=== PATIENT | male | born 1965 | race Caucasian/White ===

== ENCOUNTER 2019-04-19 09:45 | Observation (INO) ==
[2019-04-19] MEDS ORDERED: ASPIRIN PO ONE (09:55)
[2019-04-19 10:19] LABS: BASO# 0.03 X1000 (0.0-0.2); BASO% 0.4 % (0.0-0.8); EOS# 0.14 X1000 (0.0-0.7); HEMOGLOBIN 13.5 g/dL (14.0-18.0); IMM GRAN# 0.02 X1000 (0.0-0.04); IMM GRAN% 0.3 % (0.0-0.5); LYMPH# 0.98 X1000 (1.2-3.4); LYMPH% 14.2 % (20.5-51.1); MCH 28.8 PG (27-31); MCHC 31.4 g/dL (33-37); MCV 91.9 FL (81-99); MONO# 1.09 X1000 (0.11-0.59); MONO% 15.8 % (1.7-9.3); MPV 12.2 FL (7.4-10.4); NEUT# 4.64 X1000 (1.4-6.5); NEUT% 67.3 % (42.2-75.2); PLT 133 X1000 (130-400); RBC 4.68 XMIL (4.7-6.1); RDW 16.8 % (11.5-14.5)
[2019-04-19 10:32] LABS: INR 3.78
[2019-04-19 10:33] LABS: PTT 58.3 Seconds (22.3-41.8)
[2019-04-19 10:50] LABS: ALBUMIN 3.8 g/dL (3.5-5.0); CALCIUM 9.1 mg/dL (8.8-10.2); CREATININE 3.6 mg/dL (0.7-1.2); POTASSIUM 4.9 mmol/L (3.5-5.1); TOTAL PROTEIN 6.4 g/dL (6.3-8.3)
[2019-04-19] MEDS ORDERED: LASIX IV ONE (12:02)
--- NOTE | 2019-04-19 14:07 | Diag Imaging Result Doc PS360 ---
EXAM: CHEST-2 VIEWS INDICATION: sob chf TECHNIQUE: 2 views COMPARISON: 02/07/2015 FINDINGS: There is stable very mild increased interstitial markings bilaterally that probably represents mild fibrosis. The lungs are grossly clear, otherwise. There is no discrete pleural fluid collection or pneumothorax. There is stable mild cardiomegaly and stable prosthetic heart valve. Central vasculature is unremarkable. IMPRESSION: Mild chronic appearing interstitial thickening that is stable. Electronically signed by Emeka Ervin 04/19/2019 2:05 PM
[2019-04-19] MEDS ORDERED: SALINE LOCK IV FLUID XX ONE (14:29)
[2019-04-19] MEDS ORDERED: APRESOLINE IV ONE (14:42)
--- NOTE | 2019-04-19 16:46 | HISTORY AND PHYSICAL ---
PRIMARY CARE PROVIDER: Dr. Gavino Kyle. The patient sees a kidney and skilled nursing case manager with the [facility] group. HISTORY OF PRESENT ILLNESS: This is a 53-year-old male that was admitted to the ER today with complaints of increasing shortness of breath after a sinus infection that lasted approximately a week. The patient states he has a history of kidney transplant 17 years ago and history of congestive heart failure. The patient also has had a double artificial heart valve replacements and a pancreatic transplant. The patient currently has bilateral lower extremity fluid retention and complains of cough and sinus drainage. The patient also states that earlier today he had some pain that started in his shoulder blades and radiated forward where he complains that it was causing chest pain that radiated from the back into the front lasting approximately 30 to 40 minutes. The pain was dull with no associated diaphoresis, nausea or vomiting and no complaint of discomfort on exertion. The patient tried to relieve the discomfort with position changes. The pain approximately started around 8 a.m. and was as high as a 6 out of 10 but is currently a 3 out of 10 with slight ache to shoulders only. PAST MEDICAL HISTORY: 1. Coronary artery disease. 2. Aortic disease. 3. Heart valve replacement. 4. Peripheral vascular disease. 5. Left kidney transplant. 6. Pancreatic transplant. PAST SURGICAL HISTORY: 1. Coronary artery bypass grafting in 2005. 2. Right femoral-popliteal surgery in 2011 and the femoral-popliteal artery subsequently occluded 6 weeks post surgery. 3. Mitral valve replacement. 4. Renal and pancreatic transplant. FAMILY HISTORY: Father positive for CAD. SOCIAL HISTORY: Patient denies smoking, the use of alcohol or illicit drugs and currently lives with his . ALLERGIES: Ciprofloxacin. MEDICATIONS: The patient's medications will need to be updated and reconciled. REVIEW OF SYSTEMS: General: Patient denies fever or chills, flu-like symptoms. HEENT: Patient states he has sinus congestion along with some sinus drainage. Denies vision changes, dizziness, or neck pain. Endocrine: Denies excessive thirst, urination, or intolerance to heat and cold. Cardiovascular: Patient has no palpitations. The patient complains of chest pain that was radiating from shoulders to left chest with no exertion of pain, no radiation to jaw or arms. No complaints of nausea, vomiting, or diaphoresis. Extremity: Lower extremity edema noted. +1. Respiratory: Lung sounds have minimal wheezing to bases. No sputum noted. The patient does state that he has had some increased shortness of breath. The patient denies hemoptysis. GI: Patient denies nausea, vomiting, diarrhea, or constipation at this time. : Patient denies any frequency, urgency or burning. Musculoskeletal: Patient denies muscle or joint pain, weakness or muscle aches. Neuro: Patient denies dizziness, tremors, numbness. Hematological: Patient denies bruising. Psych: Denies history of mental illness or depression. Skin: The patient has a multiple purplish areas to arms and legs. LABORATORY/DIAGNOSTICS: The patient's WBCs are 6.90, hematocrit is 13.5 and 43 with platelets being 133. Patient's PT is 39 with an INR of 3.7, PTT is 58.3. Sodium is 140, potassium 4.9, chloride 102, BUN is 66 with a creatinine of 3.6, glucose is 112, AST is 40, with ALT of 18. Troponin it is 0.66 and 0.65. ProBNP is 12,645. The patient's chest x-ray shows mild chronic appearing interstitial thickening that is stable. PHYSICAL EXAM: VITAL SIGNS: Temp 97.5 degrees, heart rate 71, respirations 18, 166/100, 98% on room air. GENERAL: This is a 53-year-old male that does not appear to have shortness of breath at rest. HEENT: Normocephalic. PERRLA. Mucous membranes are moist. NECK: No lymphadenopathy noted. Trachea is midline. No JVD noted at this time. CV: Artificial valve click noted. No gallops or rubs. Rate and rhythm is regular. slight edema to b/l lower extremities RESPIRATORY: Slight wheezing to posterior bases bilaterally. Nonlabored respirations at rest. No accessory muscle use. GI: Soft and nontender. Bowel sounds x4 quadrants. Abdomen is soft and palpable x4 quadrants. NEURO: Cranial nerves 2 through 12 are grossly intact. MUSCULOSKELETAL: 5/5 on all 4 extremities. SKIN: Warm and dry with subsequently venous stasis noted to bilateral lower extremities. ASSESSMENT: 1. Chest pain. 2. Mild chronic congestive heart failure with probable exacerbation. 3. Acute on chronic kidney injury. 4. Left kidney transplant. 5. Pancreatic transplant. 6. Aortic valve replacement on Coumadin. PLAN: 1. Plan will admit to [facility]. Obtain daily weights. Will obtain pedal pulses per Doppler q.shift. Placed on O2 therapy if oxygen saturation is less than 94%. Will use saline lock. 2. Update confirm home medications and reconcile when that is complete. 3. We will use of oxygen as needed and place on telemetry. 4. The patient will be started on a heart healthy diet. 5. Obtain an echo cardiogram. Will obtain a CBC, CMP, magnesium, and proBNP. CK and PTT trending INR and serial troponins. 6. The patient was given aspirin 325 mg and Lasix 40 mg IV dose now and Apresoline 10 mg IV x1 dose. 7. Further recommendations will be pending per patient's clinical course and response to therapy. Dictated by SAVANNA Lauren for Yusuf Cedeno MD cc: Yusuf Cedeno MD MTDD
--- NOTE | 2019-04-19 16:49 | EKG Report ---
Test Performed on : 04/19/2019 12:29:29 PM Test Reason : repeat Blood Pressure : / mmHG Vent. Rate : 065 BPM Atrial Rate : 065 BPM P-R Int : 186 ms QRS Dur : 136 ms QT Int : 450 ms P-R-T Axes : 055 -53 143 degrees QTc Int : 468 ms Normal sinus rhythm. Left axis deviation Left bundle branch block Abnormal ECG When compared with ECG of 19-APR-2019 10:01, (Unconfirmed) No significant change was found Unconfirmed Result
--- NOTE | 2019-04-19 16:50 | EKG Report ---
Test Performed on : 04/19/2019 10:01:42 AM Test Reason : sob chest pressure chf Blood Pressure : / mmHG Vent. Rate : 070 BPM Atrial Rate : 070 BPM P-R Int : 184 ms QRS Dur : 136 ms QT Int : 428 ms P-R-T Axes : 045 -56 144 degrees QTc Int : 462 ms Normal sinus rhythm. Left axis deviation Nonspecific intraventricular block T wave abnormality, consider lateral ischemia Abnormal ECG When compared with ECG of 04-OCT-2013 06:33, premature ventricular complexes. are no longer present QRS duration has increased T wave inversion more evident in Lateral leads Unconfirmed Result
[2019-04-19] MEDS ORDERED: NS 1,000 ML IV SCH (18:15)
[2019-04-19] MEDS ORDERED: PATIENT'S OWN MED PO SCH ×8 (18:15→21:00)
[2019-04-19 18:25] LABS: BASO# 0.02 X1000 (0.0-0.2); BASO% 0.3 % (0.0-0.8); EOS# 0.15 X1000 (0.0-0.7); EOS% 2.3 % (0.0-10.0); HEMATOCRIT 42.3 % (42.0-52.0); HEMOGLOBIN 13.6 g/dL (14.0-18.0); IMM GRAN# 0.01 X1000 (0.0-0.04); IMM GRAN% 0.2 % (0.0-0.5); LYMPH% 12.2 % (20.5-51.1); MCH 29.6 PG (27-31); MCHC 32.2 g/dL (33-37); MONO# 0.93 X1000 (0.11-0.59); MONO% 14.1 % (1.7-9.3); MPV 11.9 FL (7.4-10.4); NEUT# 4.67 X1000 (1.4-6.5); NEUT% 70.9 % (42.2-75.2); PLT 134 X1000 (130-400); RDW 16.7 % (11.5-14.5); WBC 6.58 X1000 (4.8-10.8)
[2019-04-19] MEDS ORDERED: NS 500 ML IV SCH (19:00)
--- NOTE | 2019-04-19 19:54 | HISTORY AND PHYSICAL ---
ADDENDUM: Patient seen and examined by myself. Full note dictated and discussed with nurse practitioner. Patient presented to the hospital noting that he is having increased shortness of breath. He has lower extremity edema, but notes that he always has this. It may be slightly worse. His creatinine is actually a little bit worse at 3.6 than his normal at 2.6. Does have a history of I believe aortic and mitral valve replacement. History of renal and pancreas transplant. I am going to admit him to the hospital and follow his symptoms. I believe he may be a little intravascularly depleted. I am going to give him some fluids and follow. cc: Yusuf Cedeno MD
[2019-04-19] MEDS ORDERED: MIRAPEX PO SCH (21:00)
[2019-04-19] MEDS ORDERED: METOPROLOL TARTRATE 50 MG PO SCH (21:00)
[2019-04-19] MEDS ORDERED: PRAVACHOL PO SCH (21:00)
[2019-04-19] MEDS ORDERED: XANAX PO SCH (21:00)
[2019-04-19] MEDS ORDERED: CELLCEPT PO SCH (21:00)
[2019-04-19] MEDS ORDERED: KEFLEX PO SCH (21:00)
[2019-04-19] MEDS ORDERED: TOPROL XL PO SCH (21:00)
[2019-04-19] MEDS: PROGRAF PO SCH (21:30)
[2019-04-19] MEDS: SODIUM BICARBONATE PO SCH (21:30)
[2019-04-19] MEDS: PATIENT'S OWN MED OPH SCH (21:31)
[2019-04-20 03:17] LABS: INR 3.07; PROTIME 33.1 Seconds (11.0-16.0)
[2019-04-20 04:15] LABS: ALBUMIN 3.2 g/dL (3.5-5.0); CALCIUM 8.5 mg/dL (8.8-10.2); CREATININE 3.3 mg/dL (0.7-1.2); MAGNESIUM 2.2 mg/dL (1.5-2.7); POTASSIUM 4.7 mmol/L (3.5-5.1); TOTAL PROTEIN 5.8 g/dL (6.3-8.3)
[2019-04-20] MEDS ORDERED: PRILOSEC PO SCH (07:00)
[2019-04-20] MEDS ORDERED: NS 1,000 ML IV SCH (08:30)
[2019-04-20] MEDS ORDERED: TOPROL XL PO SCH (09:00)
[2019-04-20] MEDS ORDERED: PREDNISONE PO SCH (09:00)
[2019-04-20] MEDS ORDERED: THERA M PLUS PO SCH (09:00)
[2019-04-20] MEDS ORDERED: PATIENT'S OWN MED PO SCH ×7 (09:00→21:00)
[2019-04-20] MEDS ORDERED: LASIX PO SCH (09:00)
[2019-04-20] MEDS ORDERED: ASPIRIN PO SCH (09:00)
[2019-04-20] MEDS ORDERED: VASOTEC PO SCH (09:00)
[2019-04-20] MEDS: PROGRAF PO SCH (09:59)
[2019-04-20] MEDS: SODIUM BICARBONATE PO SCH (10:00)
[2019-04-20] MEDS: PATIENT'S OWN MED OPH SCH (10:03)
[2019-04-20 12:19] VITALS: BP 144/92
[2019-04-20] MEDS ORDERED: COUMADIN PO SCH (21:00)
--- NOTE | 2019-04-21 07:36 | ECHO REPORT ---
ORDER DATE: 04/19/2019 INTERPRETING PHYSICIAN: Dr. Parsons CLINICAL INDICATIONS: Patient with mitral and aortic valve replacement, prior coronary bypass. M-MODE MEASUREMENTS: Left ventricle end diastole: 5.3 cm. Left ventricle end systole: 4.7 cm. Posterior wall: 1.0 cm. Interventricular septum: 1.1 cm. Left atrium: 5.2 cm. Aortic root: 3.5 cm. SUMMARY OF 2-DIMENSIONAL IMAGING: The left ventricular function appears to be significantly impaired, estimated at 30-35%. There is wall motion abnormality involving the intraventricular septum and inferior wall. This study is really very difficult. The tricuspid valve shows moderately severe to severe degree of regurgitation. The pulmonary pressure is estimated at 100 mmHg. The mitral valve is mechanical. It shows an elevated E/A ratio, the ratio is 3.2. The maximum gradient across the valve is 9 mm, mean gradient is 2 mm. That is normal. The aortic valve is a mechanical prosthesis. The maximum gradient across the aortic valve is 16 mm and the mean gradient is 7 mm. The pulmonic valve appears to be grossly unremarkable. There is some mild to moderate degree of pulmonic regurgitation. There is no pericardial effusion. Both atria appear to be enlarged. The left atrium appears to be significantly enlarged. The right atrium is moderately enlarged. The left ventricle is mildly to moderately enlarged. SUMMARY: This study shows 1. Enlarged left ventricle with significantly impaired systolic function with ejection fraction of 30-35% with significant impairment of the inferior wall at the inferior ventricular septum. 2. Moderately severe to severe degree of tricuspid regurgitation with the pulmonary systolic pressure that is very close to 100 mmHg. 3. Mild to moderate degree of pulmonic regurgitation. 4. Normal function in mechanical aortic valve. 5. Normally functioning mechanical mitral valve. Enlarged atria. Clinical correction recommended. cc: Jin Parsons MD
--- NOTE | 2019-04-21 12:38 | DISCHARGE SUMMARY ---
ADMISSION DATE: 04/19/2019 DISCHARGE DATE: 04/20/2019 PRIMARY CARE PHYSICIAN: Dr. Gavino Kyle. ADMISSION DIAGNOSES: 1. Chest pain. 2. Mild chronic congestive heart failure with probable exacerbation. 3. Acute on chronic kidney injury. 4. Left kidney transplant. 5. Pancreatic transplant. 6. Aortic valve replacement, on Coumadin. DISCHARGE DIAGNOSES: 1. Chest pain, resolved. 2. Mild chronic congestive heart failure, with probable exacerbation, improved. 3. Acute on chronic kidney injury, improved. 4. Left kidney transplant. 5. Pancreatic transplant. 6. Aortic valve replacement, on Coumadin. SUMMARY OF FINDINGS: This is a 53-year-old male, who presented to the emergency room with increased shortness of breath after having a sinus infection last week. He states he has had bilateral lower extremity fluid retention and some pain that started in his shoulders from his back into the front, lasting approximately 30 to 40 minutes, that was dull, with no associated diaphoresis, nausea, vomiting, or complaints of discomfort on exertion. He was admitted. His cardiac enzymes x4 were negative. His proBNP was elevated at 10,848, but that is actually the lowest that he has had this year. He was placed on telemetry, healthy heart diet. Continued his home medications. His kidney function was a creatinine of 3.6, which is a little above his normal that is usually below 3, so we gave him a 500 mL bag of normal saline at 100 mL an hour to gently hydrate. The patient states he is feeling much better. His creatinine this morning was down to 3.3, so it is felt that now he can safely be discharged home. DISCHARGE MEDICATIONS: He will continue all of his home medications of timolol 0.5% ophthalmic solution 1 drop b.i.d., Xanax 0.5 mg p.o. at bedtime, aspirin 81 mg p.o. daily, Keflex 250 mg p.o. at bedtime, enalapril 2.5 mg p.o. daily, Nexium 20 mg p.o. daily, Lasix 20 mg p.o. at bedtime 40 mg p.o. q.a.m., metoprolol 75 mg p.o. b.i.d. and 50 mg p.o. at bedtime, a multivitamin p.o. daily, CellCept 500 mg p.o. b.i.d. as directed, Mirapex 0.125 mg p.o. at bedtime, pravastatin 80 mg p.o. at bedtime, prednisone 5 mg p.o. daily, sodium bicarbonate 650 mg p.o. b.i.d., spironolactone 12.5 mg p.o. daily, tacrolimus 1 mg p.o. q.12 hours, and Coumadin 6 mg p.o. at bedtime as directed and 4 mg p.o. as directed. FOLLOWUP: He will need to follow up with his primary care physician in the next 1 to 2 weeks and call their office for an appointment. All discharge instructions have been reviewed with the patient and he verbalizes understanding. TIME SPENT: 35 minutes. Dictated by SAVANNA Alba for Yusuf Cedeno MD cc: SAVANNA Alba MD Roger H. Moss Jr, MD
--- NOTE | 2019-04-21 13:10 | DISCHARGE SUMMARY ---
ADMISSION DATE: 04/19/2019 DISCHARGE DATE: 04/20/2019 ADDENDUM: Patient seen and examined by myself. Full note dictated and discussed with nurse practitioner. On discharge, patient is awake, alert, and notes that his symptoms have improved. He is no longer short of breath. His creatinine is not back to his baseline. It down to 3.3, still feel as though he is mildly dehydrated. We will give him a 500 mL bolus, he got 100 an hour, after which we will discharge him home. Follow up outpatient with primary care. No changes made on his chronic medications, diet or activity. cc: Yusuf Cedeno MD
== END 2019-04-20 16:55 | disposition home or self-care (01) ==
LOC: P.MEDSURG 09:45 → P.ED 09:45 → P.MEDSURG 13:16
PROVIDERS: ATTEND Family Medicine
CPT/HCPCS: 71020; 71046; 80053; 82550; 83735; 83880; 84484; 85025; 85610; 85730; 93005; 93306; A9270; J0360; J1940; J7030; J7506; J7512; J7517

== ENCOUNTER 2019-07-29 15:49 | Inpatient (IN) ==
[2019-07-29] MEDS ORDERED: TYLENOL PO ONE (16:16)
--- NOTE | 2019-07-29 16:18 | PROVIDER DOCUMENTATION ---
HPI-General Adult - General Chief Complaint: Cough Stated Complaint: COUGH Time Seen by Provider: 07/29/19 16:16 Source: patient Allergies/Adverse Reactions: Patient Allergies Allergy/AdvReac Type Severity Reaction Status Date / Time ciprofloxacin [From Cipro] Allergy Unknown Verified 07/29/19 16:50 NSAIDS (Non-Steroidal Allergy Unknown Verified 07/29/19 16:50 Anti-Inflamma Home Medications: Home Medication List Medication Instructions Recorded Confirmed Last Taken Type Esomeprazole [Nexium] 20 mg PO DAILY 10/03/13 07/29/19 07/29/19 History Prednisone 10 mg PO DAILY 10/03/13 07/29/19 07/29/19 History Tacrolimus 1 mg PO Q12HR 10/03/13 07/29/19 07/29/19 History Timolol 0.5% Oph Solution 1 drop OPH BID 10/03/13 07/29/19 07/28/19 History [Timoptic 0.5% Oph Solution] Alprazolam [Xanax] 0.5 mg PO QHS 02/10/15 07/29/19 07/28/19 History Aspirin 81 mg PO DAILY 11/09/18 07/29/19 07/29/19 History Multivit-Min/Iron Fum/Folic AC 1 ea PO DAILY 04/19/19 07/29/19 07/29/19 History [Bbeeu-Ovydmpb-Najujrpo Tablet] Azathioprine [Imuran] 100 mg PO DAILY 07/13/19 07/29/19 07/29/19 History Ropinirole [Requip] 0.5 mg PO QHS 07/13/19 07/29/19 07/28/19 History Metoprolol Succinate E.r. [Toprol 50 mg PO QHS 07/14/19 07/29/19 07/28/19 History Xl] Warfarin [Coumadin] 5 mg PO WSUPPER 07/15/19 07/29/19 07/28/19 History - History of Present Illness -Gen Adult Nature of Presenting Problems: Pt. is 53 yom that presents with c/o SOB and fever from dialysis. He did not finish his dialysis today and reports he doesn't feel well. Location of Pain/Injury: reports: generalized. denies: none, head, face, mouth, neck, chest, upper extremity, hand(s), abdomen, back, pelvis, genitalia, lower extremity, feet, upper body, lower body, other Pain Radiation: reports: no radiation. denies: arm(s), back, buttocks, chest, epigastric, feet, groin, jaw, flank (L), legs (lower), LLQ, LUQ, neck, periumbilical, flank (R), RLQ, RUQ, shoulder(s), scapula, scrotal, sternal notch, suprapubic, legs (upper), urethral, vaginal, other Quality of Pain: reports: aching. denies: burning, indigestion, pressure, throbbing, tightness Severity: reports: mild. denies: moderate, severe Onset/Duration: reports: unsure, gradual Timing: reports: still present. denies: improving, intermittent, getting worse Context/Activities at Onset: reports: none. denies: light activity, moderate activity, vigorous activity, recent emotional stress, recent physical stress, recent trauma history, possible bad food, cold exposure, eating, out of country travel, rest, sleep, sexual activity, other Modifying Factors: improves with: nothing Associated Symptoms: reports: cough, fever/chills, shortness of breath. denies: denies symptoms, anxiety, arm pain, back/neck pain, chest pain, constipation, diaphoresis, diarrhea, dizziness, EENT symptoms, fatigue, genitourinary problems, headaches, heartburn, joint pain, loss of appetite, malaise, muscle aches, sinus congestion/drainage, nausea, rash, seizure, sensory/motor loss, pain with inspiration, swelling/mass in abdomen, syncope, vomiting, weakness, trouble walking, other Similar Symptoms Previously?: Yes Recently seen or treated by another doctor?: No Review of Systems - Adult - REVIEW OF SYSTEMS - ADULT Constitutional: reports: no symptoms reported Eyes: reports: no symptoms reported Ears, Nose, Mouth & Throat: reports: no symptoms reported Cardiovascular: reports: no symptoms reported Respiratory: reports: see HPI, cough, dyspnea on exertion, shortness of breath. denies: pleurisy, wheezing Gastrointestinal: reports: no symptoms reported Genitourinary: reports: no symptoms reported Musculoskeletal: reports: no symptoms reported Integumentary: reports: no symptoms reported Neurological: reports: no symptoms reported Psychiatric: reports: no symptoms reported Past History - Adult - PAST MEDICAL HISTORY-ADULT Review of Records: reports: Old Records Reviewed, Nursing Assessment Review, Medications Reviewed, Social history reviewed & non-contributory. Major Childhood Illnesses: reports: denies history Cardiovascular: reports: cardiac disease, aortic disease, CHF, HTN, heart valve problem, SD, PVD Respiratory: reports: denies history Gastrointestinal: reports: other (pancreas transplant) Obstetrical/Gynecological: reports: denies history Genitourinary: reports: dialysis, kidney disease (left kidney transplant) Musculoskeletal: reports: denies history Neurological: reports: denies history Endocrine/Immune: reports: Diabetes Other Conditions: reports: denies history - PRIOR SURGERIES/PROCEDURES Surgical/Procedure History: reports: CABG, cholecystectomy, other (Fem-pop; a ortic and mitral valve replacement; renal/pancreatic transplant) - IMMUNIZATION STATUS Childhood Immunizations: See Nurse Assessment Flu Vaccine: See Nurse Assessment - FAMILY HISTORY Family History: reviewed, not pertinent - SOCIAL HISTORY Smoking: denies Physical Exam-General - PHYSICAL EXAM-ADULT Initial Vital Signs Reviewed: Yes - CONSTITUTIONAL General Appearance: alert, moderate distress, lethargic. negative: anxious, obtunded, combative - EYES Eyes: PERRL/EOMI, pink conjunctivae - HEAD, EARS, NOSE, MOUTH & THROAT HENMT: normocephalic/atraumatic, moist mucous membranes - NECK Neck: non-tender, full range of motion, supple, normal inspection - RESPIRATORY Respiratory: crackles. negative: rhonchi, stridor, wheezing - CARDIOVASCULAR Cardiovascular: regular rate, rhythm, tachycardia. negative: friction rub, irregularly irregular - GASTROINTESTINAL (ABDOMEN) Abdominal Exam: normal bowel sounds, non tender - LYMPHATIC Lymphatic: no adenopathy - MUSCULOSKELETAL Back Exam: normal inspection, no CVA tenderness, no vertebral tenderness Extremity: normal range of motion, normal inspection. negative: inflammation, swelling, tenderness Peripheral Pulses: radial (R): 2+, radial (L): 2+ - SKIN Integumentary: pallor. negative: cyanosis, erythema, rash, swelling - NEUROLOGIC Neurologic: grossly normal, no motor/sensory deficits - PSYCHIATRIC Psych/Mental Status: normal mood/affect, normal thought content, normal thought process, oriented x 3. negative: anxious, paranoid, tearful Progress - PLAN OF CARE/RESULTS Progress/Plan/Lab Results: Vital Signs - 8 hr 07/29/19 16:07 Temperature 99.9 F H Pulse Rate 94 H Respiratory Rate 20 Blood Pressure 113/71 O2 Sat by Pulse Oximetry 96 Orders Category Date Time Status Saline Loc NOW Care 07/29/19 16:16 Active CHEST-2 VIEWS [RAD] Stat Exams 07/29/19 16:10 Ordered BLOOD CULTURE [BLDCUL] Stat Lab 07/29/19 16:17 Uncollected CBC WITH ELECTRONIC DIFF [HEME] Stat Lab 07/29/19 16:16 Uncollected COMPREHENSIVE METABOLIC PANEL [CHEM] Stat Lab 07/29/19 16:16 Uncollected LACTATE, PLASMA [CHEM] Stat Lab 07/29/19 16:17 Uncollected Acetaminophen [Tylenol] Med 07/29/19 16:16 Discontinued 1,000 mg PO NOW ONE Laboratory Tests 07/29/19 07/29/19 07/29/19 16:30 16:30 16:30 WBC 9.38 RBC 3.44 L Hgb 11.2 L Hct 35.7 L MCV 103.8 H MCH 32.6 H MCHC 31.4 L RDW Std Deviation 20.0 H Plt Count 166 MPV 10.3 Immature Gran % (Auto) 0.3 Neut % (Auto) 81.9 H Lymph % (Auto) 4.1 L Rosebud % (Auto) 11.1 H Eos % (Auto) 2.3 Baso % (Auto) 0.3 Immature Gran # (Auto) 0.03 Neut # (Auto) 7.68 H Lymph # (Auto) 0.38 L Rosebud # (Auto) 1.04 H Eos # (Auto) 0.22 Baso # (Auto) 0.03 Sodium 134 L Potassium 4.1 Chloride 95 L Carbon Dioxide 22 L Anion Gap 17 BUN 35 H Creatinine 4.8 H Estimated GFR/1.73 m2 13 BUN/Creatinine Ratio 7 Glucose 126 H Calculated Osmolality 278 Calcium 8.8 Total Bilirubin 2.09 H AST 32 ALT 10 Alkaline Phosphatase 272 H Mft-H-Zmsqtdktfjz Pept Total Protein 7.7 Albumin 3.4 L Globulin 4.3 Albumin/Globulin Ratio 0.8 Plasma Lactate 2.1 07/29/19 16:30 WBC RBC Hgb Hct MCV MCH MCHC RDW Std Deviation Plt Count MPV Immature Gran % (Auto) Neut % (Auto) Lymph % (Auto) Rosebud % (Auto) Eos % (Auto) Baso % (Auto) Immature Gran # (Auto) Neut # (Auto) Lymph # (Auto) Rosebud # (Auto) Eos # (Auto) Baso # (Auto) Sodium Potassium Chloride Carbon Dioxide Anion Gap BUN Creatinine Estimated GFR/1.73 m2 BUN/Creatinine Ratio Glucose Calculated Osmolality Calcium Total Bilirubin AST ALT Alkaline Phosphatase Wvm-V-Trzsuzhluxi Pept > 98110 H Total Protein Albumin Globulin Albumin/Globulin Ratio Plasma Lactate Discussed results and plan of care with patient. Patient agrees with plan and verbalizes understanding. Result Diagrams: 07/29/19 16:30 07/29/19 16:30 - XRAY 1 XRAY Study: Chest ([facility] - [address] , [address], [place] [address] [facility] - [address] [place] [address] Department of Imaging Patient: JANEY DUPREE Date: 07/29/19MR#: [id number] : 1965ADM Status: PRE ERAcct#: [id number] Age/Sex: 53/MRoom/Bed: Loc: ED Ordering Physician: Zander Weinstein MD Family Physician: Gavino Kyle Jr, MD Reason for Procedure: cough Signed EXAM: CHEST-2 VIEWS HISTORY: cough TECHNIQUE: Two views COMPARISON: 07/13/2019 FINDINGS: The lungs are well expanded. The heart is mildly enlarged. Mild increased interstitial markings. No consolidation. A heart valve has been replaced. No change in the right-sided catheter. No pneumothorax. No pleural effusions. IMPRESSION: Bilateral infiltrates versus pulmonary edema. Electronically signed by Casey Mix 07/29/2019 4:25 PM 07/29/19 7747 Interpreting Physician: Casey Mix MD Dictated Date/Time: 07/29/19 8099 cc: Zander Weinstein MD; Gavino Kyle Jr, MD) XRAY Interpretation: See note - CONSULTS/PCP/HOSPITALIST Notification #1 *Consult/PCP/Hospitalist*: Dr. Wesley Time Discussed: 17:35 Reason/Comments: Consult Consult Disposition: Admit (Give vanc and admit, blood cultures) #2 Consult: Dr. Blackburn Time Discussed: 17:42 Reason/Comments: Admission Consult Disposition: Admit Departure - Departure Date of Disposition Decision: 07/29/19 Time of Disposition Decision: 17:42 DIAGNOSIS: Shortness of breath CHF (congestive heart failure) Qualifiers: Heart failure type: unspecified Heart failure chronicity: unspecified Qualified Code(s): I50.9 - Heart failure, unspecified Renal failure Qualifiers: Renal failure chronicity: chronic Chronic kidney disease stage: unspecified stage Qualified Code(s): N18.9 - Chronic kidney disease, unspecified Fever Qualifiers: Fever type: unspecified Qualified Code(s): R50.9 - Fever, unspecified Disposition: HOME 01 Certified Medical Emergency: Emergent Condition: Stable Referrals and Follow-Ups: Gavino Kyle Jr, MD [Primary Care Provider] - - Critical Care Note This patient required my direct & personal management of CC.: No Attestation - Physician/ BETHEL Attestation Patient care was provided by Advanced Practice Provider:: Yes Advanced Practice Provider:: Allan Blackburn Advanced Practice Provider documentation review:: The Mid-level provider documentation, treatment plan and medical decision making was reviewed by the physician who agrees with all treatment and medical decision making by the P. The physician spent face to face time with patient:: No Advanced Practice Provider documentation review:: Supervising physician onsite and consulted in the evaluation and care of this patient. The physician did not have a face to face encounter with the patient.
--- NOTE | 2019-07-29 16:27 | Diag Imaging Result Doc PS360 ---
EXAM: CHEST-2 VIEWS HISTORY: cough TECHNIQUE: Two views COMPARISON: 07/13/2019 FINDINGS: The lungs are well expanded. The heart is mildly enlarged. Mild increased interstitial markings. No consolidation. A heart valve has been replaced. No change in the right-sided catheter. No pneumothorax. No pleural effusions. IMPRESSION: Bilateral infiltrates versus pulmonary edema. Electronically signed by Casey Mix 07/29/2019 4:25 PM
[2019-07-29] MEDS ORDERED: ROCEPHIN 1 GM in NS 50 ML IV ONE (16:38)
[2019-07-29 16:53] LABS: BASO# 0.03 X1000 (0.0-0.2); BASO% 0.3 % (0.0-0.8); EOS# 0.22 X1000 (0.0-0.7); EOS% 2.3 % (0.0-10.0); HEMATOCRIT 35.7 % (42.0-52.0); HEMOGLOBIN 11.2 g/dL (14.0-18.0); IMM GRAN# 0.03 X1000 (0.0-0.04); IMM GRAN% 0.3 % (0.0-0.5); LYMPH# 0.38 X1000 (1.2-3.4); LYMPH% 4.1 % (20.5-51.1); MCH 32.6 PG (27-31); MCHC 31.4 g/dL (33-37); MCV 103.8 FL (81-99); MONO# 1.04 X1000 (0.11-0.59); MONO% 11.1 % (1.7-9.3); MPV 10.3 FL (7.4-10.4); NEUT# 7.68 X1000 (1.4-6.5); NEUT% 81.9 % (42.2-75.2); PLT 166 X1000 (130-400); RBC 3.44 XMIL (4.7-6.1); WBC 9.38 X1000 (4.8-10.8)
[2019-07-29 17:10] LABS: ALB/GLOB RATIO 0.8; ALBUMIN 3.4 g/dL (3.5-5.0); CALCIUM 8.8 mg/dL (8.8-10.2); CREATININE 4.8 mg/dL (0.7-1.2); POTASSIUM 4.1 mmol/L (3.5-5.1); TOTAL BILIRUBIN 2.09 mg/dL (0.20-1.00); TOTAL PROTEIN 7.7 g/dL (6.3-8.3)
[2019-07-29] MEDS ORDERED: VANCOMYCIN 1 GM/NS 1 GM/250 ML IVPB IV ONE (17:42)
[2019-07-29] MEDS ORDERED: LASIX IV ONE (17:44)
[2019-07-29] MEDS ORDERED: SOLU-MEDROL IV ONE (21:13)
[2019-07-29] MEDS ORDERED: XANAX PO SCH (21:15)
[2019-07-29] MEDS ORDERED: REQUIP PO SCH (21:15)
[2019-07-29] MEDS: PROGRAF PO SCH (21:39)
--- NOTE | 2019-07-29 21:50 | HISTORY AND PHYSICAL ---
CHIEF COMPLAINT: Shortness of breath, pulmonary edema, end-stage renal disease. HISTORY: This is the first recent [facility] admission for this 53-year-old white man, admitted after O2 saturation dropped in the 80s while on dialysis. Dialysis was discontinued and he was sent to the emergency room. The emergency room physician called, stating that he had hypoxia, but there had been improvement by the time he was in the emergency room. Last O2 saturation on room air was 92%. Chest x-ray revealed bilateral infiltrates suggestive of pulmonary edema. ProBNP was greater than 35,000. Alkaline phosphatase was elevated at 272. Total bilirubin was 2.09. BUN was 35 and creatinine 4.8. Plasma lactate was 2.1. White blood count was 9400 with 82% neutrophils. Hematocrit was 35.7. PAST MEDICAL HISTORY: 1. On dialysis for 7 weeks. 2. He has a Vas-Cath in his right chest. PRESENT MEDICATIONS: 1. Xanax 0.5 mg nightly. 2. Requip 0.5 mg nightly. 3. Metoprolol 50 mg nightly. 4. Prograf 1 mg q.12 hours. 5. Aspirin 81 mg daily. 6. Imuran 100 mg daily. 7. Nexium 20 mg daily. 8. Prednisone 10 mg daily. 9. Timolol eyedrops 0.5% 1 drop in each eye b.i.d. 10. Warfarin 5 mg daily with supper. 11. Pravastatin 20 mg nightly. ALLERGIES: Cipro and nonsteroidal anti-inflammatory drugs. REVIEW OF SYSTEMS: Significant for hypertension and end-stage renal disease. SOCIAL HISTORY: Previous smoker. and lives with his . Denies significant alcohol usage. PHYSICAL EXAMINATION: VITAL SIGNS: Temperature 97.8 degrees, heart rate 85, respirations 16, blood pressure 115/63, O2 saturation 96% on room air. GENERAL: He was given 40 mg Lasix IV in the ER. He complains with pain in his left elbow and right hand. HEENT: Pupils equal, round, and reactive to light. Pharynx benign with no erythema or exudate. NECK: Supple with no mass or lymphadenopathy. HEART: Regular in rate and rhythm with no murmur, rub, or gallop. EXTREMITIES: There is swelling and erythema of the left olecranon bursa, elbow. He also has some erythema on the dorsal aspect of the right 5th proximal phalanx. No cyanosis, clubbing, or edema. There is some bruising on both arms, especially on the dorsal aspect of the forearms. ABDOMEN: Soft with no mass or organomegaly. RECTAL AND GENITALIA: Deferred. NEUROLOGICAL: No focal weakness. IMPRESSION: 1. Pulmonary edema. 2. Left olecranon bursitis. 3. Cellulitis of the right 5th finger. 4. End-stage renal disease. 5. Hypercholesterolemia. 6. Hypertension. PLAN: Admit for further evaluation and treatment. Dr. Leon is consulted. Blood cultures were done from 2 sites. There is possibility of pneumonia, and not just pulmonary edema. cc: MD Gavino Vinson Jr, MD
[2019-07-30] MEDS ORDERED: TIGHT: 0.2 ML/HR FOR DIALYSIS MISC PRN (06:18)
[2019-07-30] MEDS ORDERED: HEPARIN IV PRN (06:18)
[2019-07-30] MEDS ORDERED: NS 2,000 ML MISC PRN (06:18)
[2019-07-30 07:14] LABS: INR 1.82; PROTIME 21.5 Seconds (11.0-16.0)
[2019-07-30] MEDS ORDERED: IMURAN PO SCH (09:00)
[2019-07-30] MEDS ORDERED: NEXIUM PO SCH (09:00)
[2019-07-30] MEDS ORDERED: ASPIRIN PO SCH (09:00)
[2019-07-30] MEDS ORDERED: PREDNISONE PO SCH (09:00)
[2019-07-30] MEDS ORDERED: TIMOPTIC 0.5% OPH SOLUTION OPH SCH (09:00)
--- NOTE | 2019-07-30 09:19 | Diag Imaging Result Doc PS360 ---
CHEST-2 VIEWS - 07/30/2019 INDICATION: infiltrates COMPARISON: 07/29/2019 FINDINGS: Stable right-sided dialysis catheter. Stable sternotomy changes. Stable valve replacement. Stable cardiomegaly. Stable pulmonary vascular congestion. Stable hazy bilateral interstitial infiltrates compatible with edema/volume overload. No large pleural effusion. IMPRESSION: No change from prior. Electronically signed by Schuyler Tran 07/30/2019 9:16 AM
--- NOTE | 2019-07-30 09:59 | PROGRESS NOTE ---
DATE: 07/30/2019 SUBJECTIVE: The patient says he feels much better. He is not short of breath now. He is not coughing like he was yesterday. Apparently yesterday at dialysis he was coughing a lot and had a low-grade temp of 99.9 degrees Fahrenheit. He was brought to the emergency room with shortness of breath which did get better while he was in the emergency room. Chest x-ray showed very mild infiltrates bilaterally possibly pulmonary edema versus pneumonia. White count was normal. We did run a fever and was placed on IV antibiotics initially with 1 dose of vancomycin, 1 dose of Rocephin. He just been in the hospital recently and discharged on 07/16 so I am going to change the Rocephin to Fortaz. The patient does have some kidney failure and heart failure. ProBNP was greater than 35,000 but some of this is because of his kidney failure. OBJECTIVE: Blood pressure is 121/65, respirations 20, pulse 58, temperature 97.4 degrees Fahrenheit. He did go up to 100 degrees Fahrenheit on his 2nd check in the hospital but then has been afebrile. Blood cultures are pending. He says he has not been coughing up anything. He has had allergy symptoms.HEENT: Normocephalic. EOMs intact. PERRLA. Throat clear. Lungs: Fairly clear to auscultation. Heart: Regular rate and rhythm without murmurs, gallops, or friction rubs. He does have a mechanical valve. Abdomen: Soft. Active bowel sounds no organomegaly or tenderness. Neurological: Intact grossly. ASSESSMENT: 1. Bilateral infiltrates, pneumonia versus congestive heart failure. 2. Fever. 3. Status post heart valve replacement. 4. Status post pancreatic transplant. PLAN: 1. We will continue antibiotics till we get cultures back. 2. We will repeat chest x-ray. 3. Echocardiogram done just a few days ago showed a 30% EF. 4. Dr. Leon has been consulted for his dialysis. cc: Gavino Kyle Jr, MD
[2019-07-30] MEDS ORDERED: TAZIDIME 0.5 GM in NS 50 ML IV SCH (10:00)
[2019-07-30 11:23] VITALS: BP 124/86
--- NOTE | 2019-07-30 14:20 | NEPHROLOGY PROGRESS NOTE ---
DATE: 07/30/2019 Chief complaint: coughing. HPI: patient is a 53-year-old white male found our service receives hemodialysis Saturday and Saturday. He states his oxygen level was low when he arrived yesterday in the 80s. He was [address] his treatment when he developed a cough that did not stop. Mcfp through his treatment he decided to take himself off due to the coughing and bring himself to the emergency department. He was recently admitted on 07/13 with altered mental status changes during treatment that was likely secondary to hypotension. Today His chest x-ray shows pulmonary congestion. He voices not coughing since he was given medication. It is noted that he received IV Solu-Medrol, Vancomycin, and Rocephin. Past medical history: of coronary artery disease, peripheral vascular disease, chronic kidney disease stage 5D, Hypertension, hyperlipidemia, and GERD . Past surgical history: coronary bypass, aortic valve replacement, Mitral valve replacement, kidney transplant, pancreatic transplant, right femoral popliteal bypass, and cholecystectomy. Social history: patient lives at home with his . He denies any smoking, alcohol, or illicit drug use. Family history: positive for coronary disease and father. Allergies: Ciprofloxacin, NSAIDS Home medications: Review of systems: neurological: denies any altered mental status or confusion. Eyes: denies blurriness, dryness, or change in visual acuity. ENT: denies tinnitus or change in hearing. Integumentary: denies color change, rash or itch. Respiratory: denies shortness of breath orthopnea. Admits to cough yesterday but not at present. Cardiovascular: denies palpitations or chest pain. GI: denies nausea and vomiting or abdominal tenderness. : denies any color change amount or odor in urine. Endocrine: denies excessive thirst or hunger. Musculoskeletal: denies any new pain or weakness in extremities. Labs: WBC 9.38, hemoglobin 11.2, hematocrit 35.7, platelet count 166, PT 21.5, INR 1.82, sodium 134, potassium 4.1, chloride 95, carbon dioxide 22, anion gap 17, even 35, creatinine 4.8, calcium 8.8, proBNP greater than 35,000, albumin 3.4, plasma lactate 2.1, input 240, output zero. Imaging: chest x-ray today pulmonary Edema. Physical exam: vitals. Temperature 97.4, pulse 50, respirations 20, blood pressure 121/65, 02 sat 95% on room air. General: chronically ill middle-aged white male lying in bed in nomacute distress Skin: multiple scattered bruises on upper and lower extremities. Tunnel catheter to right upper chest wall. HEENT: pupils are equal round reactive conjunctiva pink, mucous membranes moist. Huston face noted. Neck: JVD with hepatojugular reflux Cardiovascular: regular with no murmurs or gallops. Mechanical heart tones noted. Lungs: crackles noted to bilateral bases posteriorly. Abdomen: slightly firm, nontender nondistended bowel sounds present. Extremities: Trace pitting bilateral lower extremity. : non-observed Neurologic: alert and oriented to person place and time Assessment and plan: Chronic kidney disease stage 5D. patient gets routine dialysis on Saturday and Saturday. His current creatinine is 4.8 which is his baseline. Due to his pulmonary Edema and episode of acute hypoxemia, we will hemodialyze him today. Acid base balance and electrolytes. In target. Blood pressure. In target. Fluid volume status. Above goal based on presentation consistent with pulmonary edema. HD today. Elevated bili, alk phos. Chart review finds no recent imaging. Will perform right upper quadrant ultrasound. cc: MD Gavino Mcpherson Jr, MD MTDD
[2019-07-30] MEDS ORDERED: COUMADIN PO SCH (17:00)
[2019-07-30] MEDS: PROGRAF PO SCH (18:15)
--- NOTE | 2019-07-30 19:22 | Diag Imaging Result Doc PS360 ---
EXAM: US GB < RUQ (LIMITED) INDICATION: elevated bili, Alk phos COMPARISON: None. FINDINGS: There has been a prior cholecystectomy. The common bile duct is normal in diameter. The liver is grossly unremarkable. Portal venous flow is hepatopetal. The pancreas is partially obscured. The visualized portion is unremarkable. The aorta and IVC are largely obscured. The visualized portions are unremarkable. The right kidney is very atrophic and echogenic consistent with end-stage renal disease. The patient is on dialysis. There is a 1.4 cm simple right renal cyst. No solid renal mass is identified. IMPRESSION: Echogenic and atrophic right kidney compatible with end-stage renal disease. Essentially unremarkable right upper quadrant ultrasound, otherwise. Electronically signed by Emeka Ervin 07/30/2019 7:19 PM
[2019-07-30] MEDS ORDERED: PRAVACHOL PO SCH (21:00)
[2019-07-30] MEDS ORDERED: TOPROL XL PO SCH (21:00)
--- NOTE | 2019-08-01 03:01 | DISCHARGE SUMMARY ---
ADMISSION DATE: 07/29/2019 DISCHARGE DATE: 07/30/2019 FINAL DIAGNOSES: 1. Pulmonary edema. 2. Pneumonia. 3. Hypoxia. 4. Renal failure. 5. Hyperbilirubinemia. SECONDARY DIAGNOSES: 1. Renal failure. 2. Status post pancreatic transplant for diabetes. HISTORY OF PRESENT ILLNESS: The patient came in with coughing and oxygen saturation drop in the 80s while on dialysis. Dialysis was discontinued. He was sent to the emergency room. Emergency room physician called stating he had some hypoxia, but he had improved in the emergency room. Chest x-ray showed some small bilateral infiltrates suggestive of pulmonary edema. ProBNP was greater than 35,000, but he is in renal failure and on dialysis. He had a low-grade temperature of 99.9 degrees Fahrenheit. There is some question about whether there was some pneumonia with this as well. He was started on IV antibiotics. Within a short period of time his cough stopped and he felt much better. His repeat chest x-ray shows stable hazy bilateral interstitial infiltrates compatible with edema/volume overload. The cough and the fever made one think that he may still have some pneumonia, but this is very early and his symptoms actually did resolve within a short period of time. Consultation was made with Dr. Leon. Dr. Leon for nephrology did see him, noticed that his bilirubin was slightly elevated. Ordered an ultrasound of his kidneys which shows an atrophic right kidney and the rest of the ultrasound was essentially normal. He has had a cholecystectomy. The patient was eager to get out of the hospital. Dr. Leon felt that he could continue with his antibiotics for a little longer and give them during dialysis. PHYSICAL EXAMINATION: Vital Signs: On discharge, temperature was 97.6 degrees Fahrenheit, respirations 18, pulse 77 and regular, blood pressure 124/86. HEENT: He is normocephalic. EOMs intact. PERRLA. Lungs: Clear to auscultation and percussion without rhonchi, rales, or wheezes. Heart: Regular rate and rhythm without murmurs, gallops, friction rubs. Abdomen: Soft. Active bowel sounds. No organomegaly or tenderness. Neurological: Exam intact grossly. FOLLOW UP: The patient will follow up with me as an outpatient within the next week. Appreciate the help from Dr. Leon. cc: Gavino Kyle Jr, MD
== END 2019-07-30 18:53 | disposition home or self-care (01) | DRG 291 ==
LOC: ED 15:49 → 4N 18:36 → 1N 07-30 15:27
PROVIDERS: ADMIT Emergency Medicine; ATTEND Emergency Medicine

== ENCOUNTER 2019-11-12 09:23 | Inpatient (IN) ==
[2019-11-12] MEDS ORDERED: KEFZOL 1 GM/D5W 2 GM/100 ML IVPB ONE (11:13)
[2019-11-12] MEDS ORDERED: 1/2 NS 500 ML ONE (11:13)
[2019-11-12] MEDS ORDERED: PEPCID ONE (11:13)
[2019-11-12] MEDS ORDERED: DIPRIVAN 1% ONE (11:28)
[2019-11-12] MEDS ORDERED: XYLOCAINE-MPF 2% ONE (11:29)
[2019-11-12 12:03] LABS: CALCIUM 9.4 mg/dL (8.8-10.2); POTASSIUM 3.9 mmol/L (3.5-5.1)
[2019-11-12 12:05] LABS: INR 12.88; PROTIME 102.8 Seconds (11.0-16.0)
[2019-11-12 12:08] LABS: CREATININE 6.2 mg/dL (0.7-1.2)
[2019-11-12] MEDS ORDERED: NS 2,000 ML MISC PRN (12:44)
--- NOTE | 2019-11-12 13:35 | Diag Imaging Result Doc PS360 ---
EXAM: CT HEAD W/O CONTRAST INDICATION: AMS with inr >12 TECHNIQUE: This exam was performed using automated exposure control, adjustment of mA or kV according to patient size, and/or use of iterative reconstruction technique. COMPARISON: 07/13/2019 FINDINGS: There is evidence of mild to moderate white matter microangiopathy and there is focal encephalomalacia involving the right frontal lobe, stable. There is no definite acute infarct given the limited sensitivity of CT versus MRI. There is no discrete intracranial mass, mass effect, or intracranial hemorrhage. The surrounding soft tissues and bony structures are essentially unremarkable. IMPRESSION: Stable chronic changes as described. No evidence of acute intracranial pathology. Electronically signed by Emeka Ervin 11/12/2019 1:33 PM
[2019-11-12 19:06] LABS: ALBUMIN 3.1 g/dL (3.5-5.0); CALCIUM 9.4 mg/dL (8.8-10.2); CREATININE 3.2 mg/dL (0.7-1.2); PHOSPHORUS 2.6 mg/dL (2.7-4.5); POTASSIUM 3.2 mmol/L (3.5-5.1)
[2019-11-12 19:34] LABS: INR 2.55; PROTIME 28.1 Seconds (11.0-16.0)
[2019-11-12] MEDS: REQUIP PO SCH (20:42)
[2019-11-12] MEDS: PROGRAF PO SCH (20:43)
[2019-11-12] MEDS: PRAVACHOL PO SCH (20:43)
[2019-11-12] MEDS: TIMOPTIC 0.5% OPH SOLUTION OPH SCH (20:43)
[2019-11-12] MEDS: MORPHINE IV PRN (20:44)
--- NOTE | 2019-11-12 21:23 | EKG Report ---
Test Performed on : 11/12/2019 6:48:16 PM Test Reason : cad Blood Pressure : / mmHG Vent. Rate : 095 BPM Atrial Rate : 095 BPM P-R Int : 174 ms QRS Dur : 142 ms QT Int : 406 ms P-R-T Axes : 076 -57 129 degrees QTc Int : 510 ms Sinus rhythm. with fusion complexes and premature atrial complexes. with aberrant conduction. Left axis deviation Left bundle branch block Abnormal ECG When compared with ECG of 14-JUL-2019 11:00, premature ventricular complexes. are no longer present aberrant conduction. is now present T wave inversion less evident in Anterolateral leads Confirmed by Roderick COLUNGA, Chica Khan ([id number]) on 11/13/2019 4:35:33 PM
--- NOTE | 2019-11-12 21:41 | NEPHROLOGY CONSULTATION ---
DATE: 11/12/2019 REASON FOR ADMISSION: Planned left BKA per Dr. Estes. REASON FOR CONSULT: Need for hemodialysis with transfusion of platelets and packed cells. CONSULTING PHYSICIAN: Dr. Estes verbally to Dr. Leon. HISTORY OF PRESENT ILLNESS: Mr. Spaulding is a 54-year-old white male who is known to our outpatient services for end-stage renal disease, who is dialyzed on Saturday, Saturday, Saturday at the [facility]. The patient had recently had surgery on 10/21/2019 for amputation of left 1st toe with amputation and wound VAC per Dr. Estes. This had not continued to heal well and there was a scheduled BKA of the left foot for this a.m.. Upon arrival, the patient had labs performed, which found his prothrombin time of 102.8 and INR of 12.88. The patient is normally on warfarin 5 mg 1 dose daily. He had been instructed to hold this along with his enteric-coated aspirin prior to this surgery. The patient had altered mental status. They were unable to perform surgery. He was transported to the dialysis unit where he is currently receiving dialysis and receiving 4 units of fresh frozen plasma. The patient is to be admitted for observation to continue to monitor his coagulopathy. He is awake and alert. He denies any recent fever or chills. No nausea, vomiting, no diarrhea. No recent falls. Pain to left foot. PAST MEDICAL HISTORY: Positive for end-stage renal disease with hemodialysis on Saturday, Saturday, Saturday, history of coronary artery disease, peripheral vascular disease, hypertension, hyperlipidemia, GERD, anemia of chronic disease and osteodystrophy of chronic disease. The patient has also had acute pancreatitis with a history of pancreatic transplant. He has also had a history of a kidney transplant and remains on tacrolimus. PAST SURGICAL HISTORY: Coronary artery bypass graft, aortic valve replacement, mitral valve replacement, kidney transplant, pancreatic transplant, right femoral-popliteal bypass, cholecystectomy, removal of 1st toe on the left foot with planned BKA of the left leg today. SOCIAL HISTORY: He lives at home with his . Has denied tobacco, alcohol or illicit drug use. FAMILY HISTORY: Positive for coronary artery disease present in his father. Previously hospitalized also in July for cough and congestion, fluid volume overload. ALLERGIES: The patient has allergies listed as allopurinol, ciprofloxacin, and nonsteroidal anti- inflammatories. HOME MEDICATIONS: Timoptic solution, tacrolimus, prednisone, Nexium, enteric- coated low-dose aspirin, multivitamin, Imuran, Requip, Coumadin, Pravachol, Grant[place], duloxetine hydrochloride. REVIEW OF SYSTEMS: Review of systems x10 as best obtained per patient at this time with pertinent positives listed above in the HPI. VITAL SIGNS: Temperature 97.6 degrees, blood pressure 116/69, heart rate 72, respirations are 18. He is currently on room air. Last recorded saturation recorded was 94%. LABORATORIES: The patient has not had any labs during his hospital stay. We will check a renal today and also in the a.m.. He has not had any intake or output, though it looks like he has had some Kefzol infusing at the time of his arrival to dialysis. He is currently receiving 4 units of plasma per orders of Dr. Leon. PHYSICAL EXAMINATION: General: This is a 54-year-old white male. He is resting quietly on a stretcher. He appears in no acute distress. Skin: Warm and dry. He appears chronically ill in appearance. HEENT: Normocephalic, atraumatic. Conjunctiva is pale pink. He has ARDEN. He has eastman face that is noted. Neck: Supple. Trachea midline. No evidence of JVD. Cardiovascular: Regular rate and rhythm. He has a chronic mechanical heart click. Lungs: Diminished breath sounds with poor inspiratory effort, otherwise, clear to auscultation anterior on room air. Abdomen: Slightly firm, nontender. Positive bowel sounds. Genitourinary: Not observed. Minimal void with dialysis assist. Extremities: The patient has trace edema bilateral. He has a dressing to his left foot with noted gangrenous appearance of left toes and right great toe. He also has some gangrenous note to his 3rd toe on the right, missing 2nd toe on the right. Diminished pulses bilateral. Neurological: He is lethargic. He has received some morphine since his hospitalization. He is resting quietly on dialysis. ASSESSMENT AND PLAN: 1. Chronic kidney disease stage 5D. The patient is currently on hemodialysis. He is receiving 4 units of plasma secondary to an elevated INR. The patient is to be admitted overnight. We will re-evaluate dialysis in the a.m. this is infusing to a right tunnel catheter to the right chest wall. 2. Electrolytes. These are currently pending. Labs have been ordered. 3. Acidosis, again pending. 4. Anemia. Patient has coagulopathy secondary to warfarin. He is currently receiving 4 units of plasma. We will order a PT and INR in the a.m. 5. Scheduled left below-knee amputation. This is currently on hold secondary to his coagulopathy. Followed by Dr. Estes and Dr. Leon. I would like to thank you for allowing us to follow with this patient. Dictated by SAVANNA Jones for Felipe Leon MD Data reviewed, discussed with Harlan Pratt on 11/12/19. I agree with the above assessment and plan of care. cc: SAVANNA Jones MD Matthew L. Figh, MD [facility]ARITAN HOSPITALJermaine
--- NOTE | 2019-11-12 21:55 | CONSULTATION ---
DATE OF CONSULTATION: 11/12/2019 ADMITTING PHYSICIAN: Shivam Estes MD REASON FOR CONSULTATION: Medical treatment for condition. HISTORY OF PRESENT ILLNESS: The patient came in to have a lpbhz-mlc-haan amputation on the left for gangrene foot and atherosclerosis. It was found out that his INR was 12.88. The patient did establish with me a couple of years ago, but has not been to my office since February 2019. I did see him in the hospital in July of last year, but he did not return for follow-up. He does see a physician in [place]. I have continued to give him his medications, but apparently the other physician has been checking his INRs and pro times. I do not have an updated list of his medicines. We will see if he had that. Apparently the patient did get somewhat confused, and so Dr. Estes ordered a CT scan of the head which showed chronic changes of the white matter and some focal encephalomalacia involving the right frontal lobe. No acute infarcts, no bleeding. I asked the patient if he was hurting anywhere and he said no, but he was lethargic and would fall asleep easily when I was talking with him. PAST MEDICAL HISTORY: Previous diagnoses include hyperlipidemia; CAD, status post aortic valve replacement, status post mitral valve replacement; CHF; status post kidney transplant; status post pancreatic transplant; hypertension; GERD; anxiety; glaucoma; allergic rhinitis; on Coumadin, on transplant antirejection drugs; chronic kidney disease; peripheral vascular disease; history of tobacco use; mild thrombocytopenia and mild BPH. REVIEW OF SYSTEMS: Difficult to obtain, as he kept falling asleep. He is on dialysis at this time. PHYSICAL EXAMINATION: Vital signs show blood pressure 116/69, respirations 18, pulse 72, temperature 97.6 degrees Fahrenheit. HEENT is normocephalic. EOMs intact. PERRLA. Throat clear. Lungs sound clear to auscultation and percussion without rhonchi, rales or wheezes. Heart sounds slightly irregular without murmurs, gallops or friction rubs. Abdomen is soft. Active bowel sounds. No organomegaly or tenderness. The patient has some gangrene on his toes of the left foot. Decreased pulses. ASSESSMENT AND PLAN: Patient with multiple physical problems, with gangrene of the toes and was going to have a abaoy-mzg-aqmh amputation. Came in with an elevated INR and pro time. He has been given fresh frozen plasma. We will follow his INR and pro times. Appreciate this consultation. Will follow along and make suggestions as needed. cc: MD Shivam Prieto Jr, MD
[2019-11-13] MEDS: MORPHINE IV PRN ×3 (01:04→21:01)
[2019-11-13] MEDS: PRILOSEC PO SCH (06:21)
[2019-11-13] MEDS ORDERED: KEFZOL 1 GM/D5W 2 GM/100 ML IVPB IV ONE (07:00)
[2019-11-13] MEDS ORDERED: FENTANYL ONE (07:50)
[2019-11-13] MEDS ORDERED: QUELICIN (DOSE) ONE (07:50)
[2019-11-13] MEDS ORDERED: DIPRIVAN 1% ONE (07:50)
[2019-11-13] MEDS ORDERED: XYLOCAINE-MPF 2% ONE (07:51)
[2019-11-13] MEDS ORDERED: ROBINUL ONE (07:52)
[2019-11-13 08:04] LABS: BASO# 0.06 X1000 (0.0-0.2); BASO% 0.8 % (0.0-0.8); EOS# 0.27 X1000 (0.0-0.7); EOS% 3.7 % (0.0-10.0); HEMATOCRIT 35.3 % (42.0-52.0); IMM GRAN# 0.04 X1000 (0.0-0.04); IMM GRAN% 0.5 % (0.0-0.5); LYMPH% 8.2 % (20.5-51.1); MCH 36.5 PG (27-31); MCHC 31.2 g/dL (33-37); MCV 117.3 FL (81-99); MONO# 0.57 X1000 (0.11-0.59); MONO% 7.8 % (1.7-9.3); MPV 11.8 FL (7.4-10.4); NEUT# 5.79 X1000 (1.4-6.5); PLT 127 X1000 (130-400); RBC 3.01 XMIL (4.7-6.1); RDW 18.7 % (11.5-14.5); WBC 7.33 X1000 (4.8-10.8)
[2019-11-13 08:06] LABS: INR 3.17; PROTIME 33.5 Seconds (11.0-16.0)
[2019-11-13] MEDS ORDERED: KEFZOL 1 GM/D5W 1 GM/50 ML IVPB ONE (08:31)
[2019-11-13 08:54] LABS: ALBUMIN 2.9 g/dL (3.5-5.0); CREATININE 4.4 mg/dL (0.7-1.2); PHOSPHORUS 4.1 mg/dL (2.7-4.5); POTASSIUM 4.3 mmol/L (3.5-5.1)
[2019-11-13] MEDS ORDERED: OFIRMEV 1000 MG/ISOTONIC SOLN 1,000 MG/100 ML BOTTLE ONE (09:25)
[2019-11-13] MEDS ORDERED: VENTOLIN HFA ONE (09:29)
[2019-11-13] MEDS ORDERED: DECADRON ONE (09:32)
[2019-11-13] MEDS ORDERED: ZOFRAN ONE (09:32)
[2019-11-13] MEDS ORDERED: ZEMURON ONE (09:32)
[2019-11-13] MEDS ORDERED: BRIDION ONE (09:33)
--- NOTE | 2019-11-13 09:36 | PROGRESS NOTE ---
DATE: 11/13/2019 SUBJECTIVE: Patient says he was feeling good but he just had some IV morphine. He is going to surgery for his chbjs-jum-xxoi amputation of the left for ischemic leg with what appears to be gangrene, at least his toes are black. He was coming in yesterday for the surgery and had an INR of 12+. It was down to 2.55 yesterday after fresh frozen plasma. This morning it was 3.17, so he is still somewhat anticoagulated. Surgery apparently feels that they can go ahead even with this and do his surgery. OBJECTIVE: Vital Signs: Blood pressure 115/68, respirations 24, pulse 90, temperature 97.4 degrees. HEENT: Normocephalic. Extraocular movements intact. PERRLA. Throat clear. Lungs: Sound clear to auscultation and percussion without rhonchi, rales, or wheezes. Heart: Regular rate and rhythm without murmurs, gallops, friction rubs. Abdomen: Soft, active bowel sounds. No organomegaly or tenderness. Extremities: He does have decreased pulses in left foot and black toes. ASSESSMENT: 1. Ischemic left lower extremity. 2. Renal failure. 3. Confusion. CT scan did not really show anything that would identify the source of his confusion. 4. He has also had a kidney transplant. He has had pancreatic transplant, has multiple health problems. PLAN: We will continue to follow. We will watch his INR and pro-time. cc: MD Shivam Prieto Jr, MD
[2019-11-13] MEDS: DILAUDID ONE ×2 (10:35→10:46)
--- NOTE | 2019-11-13 10:39 | GENERAL SURGERY PROGRESS NOTE ---
DATE: 11/13/2019 SUBJECTIVE: The patient was originally scheduled for a rjtga-vzz-pgpg amputation yesterday, but it was noted that his INR was 2.88. He was admitted and given FFP, underwent dialysis. He did get a head CT scan secondary to altered mental status and his elevated INR, which is essentially normal. He has been doing well since admission. OBJECTIVE: Vital Signs: Patient is currently afebrile. Vital signs are stable. General: No acute distress. HEENT: Normocephalic, atraumatic. Pupils equal, round, react to light. Mucous membranes moist. Oropharynx benign. Neck: Supple. Trachea midline. Cardiovascular: Regular rate and rhythm. Lungs: Grossly clear. Abdomen: Soft, nontender, nondistended. Extremities: Left lower extremity unchanged. ASSESSMENT AND PLAN: A 54-year-old gentleman scheduled for rtuox-dwj-kkob amputation with elevated INR and renal failure. 1. Schedule for a ylxsx-ler-epni amputation. At this time, we have him tentatively on the schedule for today. We will need to see what his INR is again this morning, but he has gotten 4 units of FFP and it did respond from 12 to 2, so I think we can probably be able to proceed still. 2. Elevated INR. At this point, unsure exactly if the patient had been taking his Coumadin correctly, but we will hold off on restarting for right now. We will recheck his INR. 3. Renal failure. At this time, Dr. Leon and Nephrology have seen the patient. He underwent dialysis and seemed to tolerate it well. cc: Shivam Estes MD
[2019-11-13 11:15] LABS: BANDS 1 % (0-1); EOS 6 % (1-10); LYMPHS 5 % (21-51); MONO 4 % (1-9); SEGS 84 % (42-75)
[2019-11-13] MEDS: PREDNISONE PO SCH (12:05)
[2019-11-13] MEDS: TIMOPTIC 0.5% OPH SOLUTION OPH SCH ×2 (12:05→21:01)
[2019-11-13] MEDS: IMURAN PO SCH (12:05)
[2019-11-13] MEDS: PROGRAF PO SCH ×2 (12:06→21:01)
[2019-11-13] MEDS: CYMBALTA PO SCH (12:07)
--- NOTE | 2019-11-13 17:18 | OPERATIVE NOTE ---
PROCEDURE DATE: 11/13/2019 PREOPERATIVE DIAGNOSIS: 1. Gangrene of left foot. 2. Peripheral artery disease. 3. Elevated INR. POSTOP DIAGNOSIS: 1. Gangrene of left foot. 2. Peripheral artery disease. 3. Elevated INR. PROCEDURES: Left xxxvr-epy-sple amputation. SURGEON: Shivam Estes MD. MUSEUM REGISTRAR: None. ANESTHESIA: General endotracheal. INTRAOPERATIVE FINDINGS: Gangrene of left foot intact. TOTAL TOURNIQUET TIME: 19 minutes. COMPLICATIONS: None at time of this dictation. ESTIMATED BLOOD LOSS: 50 mL. SPECIMENS: Left leg. BRIEF HISTORY: A 54-year-old gentleman with gangrene of left foot. We tried a toe amputation and it did not heal. His foot was getting worse. He has had previous vascular interventions without success. It was felt that he would benefit from oxrny-ajv-hxkj. The risks, benefits, and alternatives were discussed. He had previously been scheduled for intervention yesterday, but his INR was 12. We were able to get down to below 3, but it was 3 again this morning. I felt as though it would still be safe to proceed. We discussed the risk of bleeding. We elected to use a tourniquet. DESCRIPTION OF PROCEDURE: After informed consent was obtained, the patient was brought to the operative theatre, transferred to the operating table, and placed in supine position. Tourniquet was placed in the left leg. The left leg was prepped and draped in sterile fashion after patient was intubated by anesthesia. After the patient's leg was prepped and draped in a sterile fashion, we did a formal time-out, confirming patient, date, procedure. All were in agreement. At that time, we turned the tourniquet up to 300. A total time of the tourniquet was 19 minutes. We made a standard incision over the tibia more than 2 cm from the tibial prominence, carried all the way down, isolated tibia, used a saw to go through the tibia, then isolated the fibula. We took a saw through it. Then using amputation knife to complete the posterior flap, we were able to identify all major vessels and suture ligate them. We then released the tourniquet, found a couple of other areas of bleeding which we were able to suture ligate. We then tailored the muscle to make the flap posteriorly come back around. We then brought the flap around, closed it in layers using Vicryl and leanne. The patient tolerated the procedure. Anesthesia was determining if the patient would be extubated in the operating room or later, but he hemodynamically did well during the procedure. cc: Shivam Estes MD
[2019-11-13] MEDS: PRAVACHOL PO SCH (21:00)
[2019-11-13] MEDS: REQUIP PO SCH (21:00)
[2019-11-13] MEDS ORDERED: ATIVAN IV ONE (23:25)
[2019-11-14] MEDS: PRILOSEC PO SCH ×2 (06:26→06:40)
[2019-11-14 07:41] LABS: INR 4.43; PROTIME 43.8 Seconds (11.0-16.0)
[2019-11-14 07:42] LABS: BASO# 0.01 X1000 (0.0-0.2); BASO% 0.1 % (0.0-0.8); HEMATOCRIT 34.8 % (42.0-52.0); IMM GRAN# 0.05 X1000 (0.0-0.04); IMM GRAN% 0.7 % (0.0-0.5); LYMPH# 0.33 X1000 (1.2-3.4); LYMPH% 4.3 % (20.5-51.1); MCH 36.9 PG (27-31); MCHC 31.6 g/dL (33-37); MCV 116.8 FL (81-99); MONO# 0.46 X1000 (0.11-0.59); MPV 11.3 FL (7.4-10.4); NEUT# 6.81 X1000 (1.4-6.5); NEUT% 88.9 % (42.2-75.2); PLT 102 X1000 (130-400); RBC 2.98 XMIL (4.7-6.1); RDW 18.5 % (11.5-14.5); WBC 7.66 X1000 (4.8-10.8)
[2019-11-14 08:28] LABS: CALCIUM 9.5 mg/dL (8.8-10.2); CREATININE 5.6 mg/dL (0.7-1.2); POTASSIUM 4.7 mmol/L (3.5-5.1)
[2019-11-14] MEDS: CYMBALTA PO SCH (09:49)
[2019-11-14] MEDS: PROGRAF PO SCH ×2 (09:50→21:38)
[2019-11-14] MEDS: IMURAN PO SCH (09:50)
[2019-11-14] MEDS: TIMOPTIC 0.5% OPH SOLUTION OPH SCH ×2 (09:50→21:38)
[2019-11-14] MEDS: PREDNISONE PO SCH (09:51)
[2019-11-14] MEDS: MORPHINE IV PRN ×2 (10:32→18:53)
[2019-11-14 11:22] LABS: LYMPHS 4 % (21-51); MONO 5 % (1-9); SEGS 91 % (42-75)
[2019-11-14 11:23] LABS: ANISOCYTOSIS 4+; HYPOCHROM 2+
[2019-11-14] MEDS ORDERED: NS 2,000 ML MISC PRN (14:18)
[2019-11-14] MEDS ORDERED: HEPARIN IV PRN (14:18)
[2019-11-14] MEDS ORDERED: TIGHT: 0.2 ML/HR FOR DIALYSIS MISC PRN (14:18)
--- NOTE | 2019-11-14 15:24 | PROGRESS NOTE ---
DATE: 11/14/2019 SUBJECTIVE: The patient says he feels a little bit better. He has pain from the surgery, but he says he is better today than he was yesterday. OBJECTIVE: Vital Signs: Blood pressure 123/78, respirations 20, pulse 74, temperature 97.4 degrees Fahrenheit. HEENT: Normocephalic. PERRLA. Throat clear. Lungs: Clear to auscultation and percussion without rhonchi, rales, or wheezes. Heart: Regular rate and rhythm without murmurs, gallops, friction rubs. Abdomen: Soft, active bowel sounds. No organomegaly or tenderness. Has had amputation with a fdtjd-ijn-pgoh amputation on the left. LABORATORY: White count 7660, platelet count still low 102,000. INR is back up to 4.43. Electrolytes essentially normal except for creatinine of 5.6, so he will be getting his dialysis. ASSESSMENT: 1. Gangrene of left lower extremity. 2. Coagulopathy status post baluc-pmo-yxia amputation. PLAN: Continue to support. cc: MD Shivam Prieto Jr, MD
[2019-11-14] MEDS: PRAVACHOL PO SCH (21:37)
[2019-11-14] MEDS: REQUIP PO SCH (21:37)
--- NOTE | 2019-11-14 22:27 | GENERAL SURGERY PROGRESS NOTE ---
DATE: 11/14/2019 SUBJECTIVE: The patient seems to be doing okay this morning. No acute complaints. OBJECTIVE: Vital Signs: He is afebrile. Vital signs are stable. General: He is awake and alert, no acute distress. Extremities: The left BKA stump dressing is clean and dry. LABORATORY: CBC and metabolic profile reviewed and unremarkable. ASSESSMENT AND PLAN: A 54-year-old male status post below-knee amputation (BKA) yesterday with a history of renal and pancreas transplant. He is on dialysis. We will keep his dressing intact through the weekend. cc: MD Shivam Messina MD
--- NOTE | 2019-11-14 23:41 | NEPHROLOGY PROGRESS NOTE ---
DATE: 11/14/2019 SUBJECTIVE: He is awake and alert but he is confused. Speech is mostly inarticulate. He has received several doses of narcotic pain medicines, hydromorphone and morphine. OBJECTIVE: Vital Signs: Blood pressure 124/68, heart rate 74, respirations 20, afebrile. General: No acute distress. Skin: Warm and dry. Neck: Neck veins are not appreciated. Heart: Regular with metallic heart tones. Lungs: Have equal breath sounds. No crackles. Abdomen: Soft, nontender, bowel sounds present. Extremities: 1+ edema. No clubbing or cyanosis. IMPRESSION: 1. Peripheral vascular disease status post below-knee amputation (BKA). 2. Chronic kidney disease 5D. He will have his routine dialysis today. 2K bath, 32 bicarbonate, 2 L ultrafiltration. 3. Altered mental status. Likely related to anesthesia and narcotics. No changes. cc: MD Shivam Mcpherson MD
[2019-11-15] MEDS: MORPHINE IV PRN ×4 (04:19→21:03)
[2019-11-15] MEDS: PRILOSEC PO SCH ×2 (04:19→06:02)
[2019-11-15 07:45] LABS: EOS# 0.03 X1000 (0.0-0.7); EOS% 0.3 % (0.0-10.0); HEMATOCRIT 35.1 % (42.0-52.0); HEMOGLOBIN 11.1 g/dL (14.0-18.0); IMM GRAN# 0.04 X1000 (0.0-0.04); IMM GRAN% 0.4 % (0.0-0.5); INR 4.35; LYMPH# 0.46 X1000 (1.2-3.4); LYMPH% 4.8 % (20.5-51.1); MCHC 31.6 g/dL (33-37); MONO# 0.62 X1000 (0.11-0.59); MONO% 6.4 % (1.7-9.3); MPV 11.3 FL (7.4-10.4); NEUT% 88.1 % (42.2-75.2); PLT 121 X1000 (130-400); PROTIME 43.1 Seconds (11.0-16.0); RDW 18.3 % (11.5-14.5); WBC 9.65 X1000 (4.8-10.8)
[2019-11-15] MEDS: PROGRAF PO SCH ×2 (08:21→21:04)
[2019-11-15] MEDS: PREDNISONE PO SCH (08:21)
[2019-11-15] MEDS: IMURAN PO SCH (08:21)
[2019-11-15] MEDS: PERIDEX MT SCH ×2 (08:21→21:04)
[2019-11-15] MEDS: CYMBALTA PO SCH (08:22)
[2019-11-15] MEDS: TIMOPTIC 0.5% OPH SOLUTION OPH SCH ×2 (08:23→21:04)
[2019-11-15 08:24] LABS: CALCIUM 9.6 mg/dL (8.8-10.2); POTASSIUM 3.8 mmol/L (3.5-5.1)
--- NOTE | 2019-11-15 10:15 | PROGRESS NOTE ---
DATE: 11/15/2019 SUBJECTIVE: The patient is very sleepy. I did arouse him and asked him a question or two. Apparently, he has been having a few little hallucinations. He has had some altered mental status. CT scan of the head did not show anything acute. Some of this may be just from his general condition. He is now status post left BKA. OBJECTIVE: Vital Signs: Blood pressure was 122/69, then dropped to 99/60. We will watch this. Respirations 20, pulse 75, temperature 97.2 degrees Fahrenheit, oxygen saturation is 93% on room air. It was lower at times. It is 98% with nasal cannula. He is on the nasal cannula now. HEENT: Normocephalic. EOMs intact. PERRLA. Throat clear. Lungs: Sound clear to auscultation and percussion without rhonchi, rales, or wheezes. Heart: Regular rate and rhythm without murmurs, gallops, friction rubs. Abdomen: Soft. Active bowel sounds. No organomegaly or tenderness. LABORATORY DATA: White count is 9650, hemoglobin 11.1, hematocrit 35.1. Creatinine is 4.0, BUN 28. Rest of the electrolytes are essentially normal. INR is 4.35, PT 43.1. ASSESSMENT: 1. Gangrene, left lower extremity, now status post below-knee amputation. 2. Coagulopathy. 3. Renal failure. PLAN: Continue to support. cc: MD Shivam Prieto Jr, MD
--- NOTE | 2019-11-15 15:09 | GENERAL SURGERY PROGRESS NOTE ---
DATE: 11/15/2019 SUBJECTIVE: The patient seems to be doing better. He is more interactive. He is eating reasonably well. No severe pain. OBJECTIVE: Vital Signs: He is afebrile. Vital signs are stable. General: He is awake, alert, no acute distress. Extremities: The left BKA stump dressing is clean and dry. No bleeding noted through the dressing. LABORATORY: CBC and metabolic profile reviewed and unremarkable. ASSESSMENT/PLAN: 54-year-old male status post left ymrbv-khd-xcuw amputation. He seems to be making good progress. Dr. Estes plans to look at the wound tomorrow. cc: MD Shivam Messina MD
[2019-11-15] MEDS: PRAVACHOL PO SCH (21:04)
[2019-11-15] MEDS: REQUIP PO SCH (21:04)
[2019-11-16] MEDS: MORPHINE IV PRN ×2 (05:21→18:17)
[2019-11-16] MEDS: PRILOSEC PO SCH ×2 (05:21→06:40)
[2019-11-16] MEDS: TIMOPTIC 0.5% OPH SOLUTION OPH SCH (08:08)
[2019-11-16] MEDS: PERIDEX MT SCH (08:08)
[2019-11-16] MEDS: PREDNISONE PO SCH (08:11)
[2019-11-16] MEDS: PROGRAF PO SCH (08:11)
[2019-11-16] MEDS: IMURAN PO SCH (08:12)
[2019-11-16] MEDS: CYMBALTA PO SCH (08:12)
[2019-11-16 08:14] LABS: INR 4.07
[2019-11-16 08:15] LABS: PROTIME 40.9 Seconds (11.0-16.0)
[2019-11-16] MEDS ORDERED: ZOFRAN IV PRN (08:29)
--- NOTE | 2019-11-16 09:13 | PROGRESS NOTE ---
DATE: 11/16/2019 SUBJECTIVE: The patient seems to be feeling better. He is more alert but he is still having some hallucinations and confusion. Hopefully, this will improve over time. OBJECTIVE: Blood pressure is 113/68, respirations 17, pulse 81, temperature 98.3 degrees Fahrenheit. HEENT: Normocephalic. EOMs intact. PERRLA. Throat clear. Lungs: Clear to auscultation and percussion without rhonchi, rales, or wheezes. Heart: Regular rate and rhythm without murmurs, gallops, or friction rubs. Abdomen: Soft with active bowel sounds, though he says he is a little bit nauseated. This may be from his medicines. Dr. Estes looked at his wound and there is still a dark area there that he may have to consider debridement or even going back and doing an above the knee amputation but at this time, he wants to watch it. ASSESSMENT: 1. Gangrenous left lower extremity, now with rcsbs-bgv-xwvt amputation. 2. Renal failure. 3. Altered mental status, slightly improved, but still having hallucinations. PLAN: Continue treatment. My understanding is that he may go to rehab tomorrow. cc: MD Shivam Prieto Jr, MD
--- NOTE | 2019-11-16 09:33 | GENERAL SURGERY PROGRESS NOTE ---
DATE: 11/16/2019 SUBJECTIVE: Patient seems to be doing okay. OBJECTIVE: Vital Signs: Patient is currently afebrile. His vital signs stable. General: No acute distress, seems alert. Cardiovascular: Regular rate and rhythm. Lungs: Grossly clear. Extremities: Amputation site taken down. There is some cyanosis noted on the lateral aspect of the incision, but otherwise it looks like it is doing okay. He is in a wound stump protector. LABORATORY DATA: Reviewed from yesterday. INR still elevated at 4.35. He is not taking Coumadin. ASSESSMENT AND PLAN: A 54-year-old gentleman postoperative day number 3 from left vrxqy-zhv-gmln amputation. 1. Postoperative state. At this time, his amputation site is okay. He does have some cyanosis on the lateral aspect. We will have to watch that. We will keep leanne in place. 2. Elevated INR at this time is still greater than 4. He does have mechanical valve per the family members, which is the reason why he is on Coumadin, but he is still in the therapeutic range for that, but we are not actively giving him anything. 3. Disposition. At this time. They have requested to go to a rehab place. We will get physical therapy and case management involved. cc: Shivam Estes MD
[2019-11-16] MEDS ORDERED: HEPARIN IV PRN (13:49)
[2019-11-16] MEDS ORDERED: TIGHT: 0.2 ML/HR FOR DIALYSIS MISC PRN (13:49)
[2019-11-16] MEDS ORDERED: NS 2,000 ML MISC PRN (13:49)
--- NOTE | 2019-11-16 13:56 | PROVIDER PROGRESS NOTE ---
Progress Note Subjective: Complaints of his back hurting, no other complaints. Objective: temperature 98.3, pulse 81, respirations 17, blood pressure 113/68, 02 sat 96% on room air. General: Chronic ill appearing white male lying in bed in acute distress. HEENT: normocephalic, atraumatic, pupils equal and reactive, mucous membranes dry. Neck: supple, no jvd Cardiovascular: mechanical heart tones, s1s2 regular rate and rhythm. Respiratory: clear lungs, no rales or rhonchi. Abdomen: protruding. Bowel sounds active, left BKA with stabilizer in place : noninspected Neurological: Pleasantly confused. Admits to passing gas. Labs: intake 600, output zero. Impression: Chronic kidney disease stage 5D. He will receive his routine hemodialysis treatm ent today with the 2K bath, and attempt to pull to his outpatient dry weight (adjusting for his BKA). Blood pressure. In target. Fluid volume. In target. Anemia. In target. Electrolytes and acid-base balance. Stable on last labs. Correction with hemodialysis today. Nutrition. Adequate. Left below knee amputation And ambulation. Defer to surgery. Medication review. No changes
--- NOTE | 2019-11-16 14:40 | Diag Imaging Result Doc PS360 ---
CHEST-PORTABLE - 11/16/2019 INDICATION: rehab placement COMPARISON: 07/30/2019 FINDINGS: Stable surgical changes to the heart, with apparently two valve replacements. Stable right dialysis catheter. Lung volumes are critically low. There is accentuation in diffuse bilateral interstitial infiltrate compatible with pulmonary edema. There is significant cardiomegaly. No large pleural effusion. IMPRESSION: Critically low lung volumes. Congestive heart failure. Electronically signed by Schuyler Tran 11/16/2019 2:38 PM
[2019-11-16] MEDS ORDERED: DULCOLAX PR PRN (15:04)
[2019-11-17] MEDS: REQUIP PO SCH (00:35)
[2019-11-17] MEDS: PRAVACHOL PO SCH (00:35)
[2019-11-17] MEDS: PERIDEX MT SCH ×2 (00:35→08:34)
[2019-11-17] MEDS: TIMOPTIC 0.5% OPH SOLUTION OPH SCH ×2 (00:36→08:35)
[2019-11-17] MEDS: PROGRAF PO SCH ×2 (00:37→08:34)
[2019-11-17] MEDS ORDERED: HEPARIN IV PRN (06:36)
[2019-11-17] MEDS ORDERED: TIGHT: 0.2 ML/HR FOR DIALYSIS MISC PRN (06:36)
[2019-11-17] MEDS ORDERED: NS 2,000 ML MISC PRN (06:36)
--- NOTE | 2019-11-17 06:51 | GENERAL SURGERY PROGRESS NOTE ---
DATE: 11/17/2019 SUBJECTIVE: The patient seems to be doing okay. It looks like we might have arrangements for him to go to a rehab facility. We will try to get that facilitated today. He does need to have dialysis today, so we will try to arrange that prior to transfer. We will try to get him over to rehab and see him back in the office in 1 to 2 weeks to look at his [id number]-bsj-wgoy amputation site. cc: Shivam Estes MD
[2019-11-17 07:54] LABS: HEMOGLOBIN 10.7 g/dL (14.0-18.0); MCH 36.5 PG (27-31); MCHC 31.5 g/dL (33-37); MPV 11.7 FL (7.4-10.4); RBC 2.93 XMIL (4.7-6.1); WBC 9.84 X1000 (4.8-10.8)
[2019-11-17 07:55] LABS: INR 3.4; PROTIME 35.4 Seconds (11.0-16.0)
[2019-11-17] MEDS: PRILOSEC PO SCH (07:55)
[2019-11-17 08:17] LABS: ALBUMIN 2.4 g/dL (3.5-5.0); CREATININE 6.6 mg/dL (0.7-1.2); PHOSPHORUS 5.5 mg/dL (2.7-4.5); POTASSIUM 4.1 mmol/L (3.5-5.1)
[2019-11-17] MEDS: IMURAN PO SCH (08:34)
[2019-11-17] MEDS: CYMBALTA PO SCH (08:35)
[2019-11-17] MEDS: PREDNISONE PO SCH (08:35)
[2019-11-17] MEDS: MORPHINE IV PRN ×2 (09:36→17:03)
--- NOTE | 2019-11-17 10:38 | PROGRESS NOTE ---
DATE: 11/17/2019 SUBJECTIVE: The patient is still confused. He feels better. Still has some hallucinations. Did not get dialysis yesterday. Chest x-ray yesterday just showed a little pulmonary edema on his chest x-ray. Dialysis should help this. He is going to get his dialysis today. Apparently, he has found a little scrotal wound and wound care is going to come take care of that. OBJECTIVE: Blood pressure is 96/56, respirations 14, temperature 98 degrees Fahrenheit. HEENT: Normocephalic. EOMs intact. PERRLA. Throat clear. Lungs: Sound clear to auscultation and percussion without rhonchi, rales, or wheezes. Heart: Regular rate and rhythm without murmurs, gallops, or friction rubs. Abdomen: Soft. Active bowel sounds. No organomegaly or tenderness. Neurological Examination: The patient is still confused. Could not tell me what day it was. Could not tell me who I was. Some of this has been ongoing for some time. It may have gotten a little worse since he got sick but he is more alert and brighter today. ASSESSMENT: 1. Gangrene of left lower extremity, now szjxz-[id number] amputation. 2. History of kidney transplant and now back on dialysis. 3. History of diabetes but had pancreatic transplant. 4. Status post valve replacement. 5. Coagulopathy. INR is closer to normal now, therapeutic at 3.40. PLAN: We will continue to watch. When he gets therapeutic, we will restart his warfarin. He is probably going to rehab today or tomorrow. cc: MD Shivam Prieto Jr, MD
--- NOTE | 2019-11-17 11:46 | DISCHARGE SUMMARY ---
ADMISSION DATE: 11/12/2019 DISCHARGE DATE: 11/17/2019 ADMITTING DIAGNOSIS: Gangrene of the left foot. DISCHARGE DIAGNOSIS: Status post left [id number] amputation. ADMITTING PHYSICIAN: Dr. Shivam Estes. CONSULTATIONS: Dr. Kyle for medical management, and Dr. Leon for Nephrology consult. PROCEDURES: On 11/13/2019, the patient underwent left jjiug-ucw-[id number] amputation. BRIEF HISTORY AND COURSE OF STAY: A 54-year-old gentleman, well known to me, who had gangrene of his left foot. He needed amputation. He was admitted on 11/12/2019 for the planned operation, but unfortunately, it was found that his INR was prohibitively high, being above 12. At that point, he was admitted and resuscitated and given FFP for his coagulopathy, and he was scheduled for the next day. The patient was admitted and underwent previously described procedure the next day, which he tolerated well. His postoperative course was uneventful. We checked his wound on postoperative day 3. There was some mild ecchymosis noted on the lateral aspect, but otherwise it seemed to be healing well. His medical issues seem to be resolving. His INR was corrected, although on the day of discharge, it was still 3.4. He had underwent dialysis, which he tolerated well, and other medical issues seem to be improved, and on the day of discharge, he was hemodynamically stable, doing well, and had arrangements for a rehab facility. It was felt that he would be served best going to rehab. DISPOSITION: Rehab. DISCHARGE CONDITION: Stable. FOLLOWUP: Patient told to follow up with myself in 1 to 2 weeks. cc: Shivam Estes MD
[2019-11-17] MEDS ORDERED: SORBITOL PO PRN (12:35)
--- NOTE | 2019-11-17 12:35 | PROVIDER PROGRESS NOTE ---
Progress Note Subjective: He voices phantom leg pain to new Left BKA and constipation. No other complaints noted. Objective: temperature at 8.0, pulse 85, respirations 14, blood pressure 96/56, 02 sat 94% on 2 L nasal cannula. General: Chronic ill appearing white male lying in bed in acute distress. HEENT: normocephalic, atraumatic, pupils equal and reactive, mucous membranes dry. Skin: warm and dry with multiple bruises. Neck: supple, no jvd Cardiovascular: mechanical heart tones, s1s2 regular rate and rhythm. Respiratory: clear lungs, no rales or rhonchi. Abdomen: protruding. Bowel sounds active, left BKA with stabilizer in place : non inspected Extremities: right ankle stasis with Trace edema. Neurological: Pleasantly confused. Able to follow commands and knows he is in the hospital. Labs: WBC 9.84, hemoglobin 10.7, hematocrit 34.0, platelet count 128, sodium 138, potassium 4.1, chloride 98, carbon dioxide 24, BUN 54, creatinine 6.6. I ntake 320, output zero. Impression: Chronic kidney disease stage 5D. He will receive his hemodialysis treatment today with the 2K bath, and attempt to pull to his new outpatient dry weight. Blood pressure. In target. Fluid volume. In target. Anemia. In target. Electrolytes and acid-base balance. Stable. Management with hemodialysis today. Nutrition. Adequate. Ambulation. Defer to surgery. Constipation. Sorbitol ordered. Medication review. No changes
[2019-11-17 17:03] VITALS: BP 97/64
== END 2019-11-17 17:29 | DRG 239 ==
LOC: SURHOLD 09:23 → 4N 14:57
PROVIDERS: ADMIT Surgery; ATTEND Surgery
PROC: MS.CXOR (2019-11-12 11:54)